=== PATIENT | male | born 1970 | race Caucasian/White ===

== ENCOUNTER 2017-07-29 10:15 | Outpatient (RCR) | payer OTHER | END 2017-09-28 | LOC: MKS.ESL.PT | DX: Z47.1 Aftercare following joint replacement surgery (principal); M75.22 Bicipital tendinitis, left shoulder; M24.112 Other articular cartilage disorders, left shoulder; Z98.890 Other specified postprocedural states; Z96.612 Presence of left artificial shoulder joint | CPT/HCPCS: G8990-GP; G8991-GP ==